=== PATIENT | male | born 1995 | race Two or more races ===

== ENCOUNTER 2018-01-27 14:59 | Emergency (ER) | payer OTHER ==
[~2018-01-27] VITALS: Ht 185.4 cm; Wt 63.5 kg
[2018-01-27 15:05] VITALS: BP 127/78
[2018-01-27] MEDS ORDERED: percogesic PO (15:41)
[2018-01-27] MEDS ORDERED: CEPH-264 PO (15:41)
[2018-01-27] MEDS ORDERED: NAPR-683 PO (15:41)
--- NOTE | 2018-01-27 15:41 | PHYS DOC ---
Past History Past Medical History: No Pertinent History Past Surgical History: No Surgical History Smoking: Cigarettes Alcohol Use: Heavy Drug Use: Benzodiazepine, Marijuana, Opiates Adult General Chief Complaint Chief Complaint: GROIN PAIN [facility] HPI 22-year-old male patient complaining of painful enlarged lymph nodes and bilateral groin for more than 2 weeks and having another lymph node today that his most than his usual. Patient denies fever and chills, urinary symptom, no discharge or concern for STD, lower extremity wound or injury, abdominal pain, nausea and vomiting, diarrhea and constipation. Patient states he lost about 40 pounds for the last 4 months. Patient states he was seen by his care physician 2 days ago and had bunch of blood tests, STD and urine tests and ordering CT of abdomen and pelvis with pending results but his physician told him to come to ER if his pain getting worse. Patient states he is taking illegal Xanax and Percocet and rated his pain 10 over 10. Patient asking to have CT of abdomen and pelvis in ER right now. Review of Systems Review of Systems Constitutional: Denies fever or chills [] Eyes: Denies change in visual acuity, redness, or eye pain [] HENT: Denies nasal congestion or sore throat [] Respiratory: Denies cough or shortness of breath [] Cardiovascular: No additional information not addressed in HPI [] GI: Denies abdominal pain, nausea, vomiting, bloody stools or diarrhea [] : Denies dysuria or hematuria [] Musculoskeletal: Denies back pain or joint pain [] Integument: Denies rash or skin lesions [] Neurologic: Denies headache, focal weakness or sensory changes [] Endocrine: Denies polyuria or polydipsia [] All other systems were reviewed and found to be within normal limits, except as documented in this note. Allergies Allergies Allergies Coded Allergies Type Severity Reaction Last Updated Verified Sulfa (Sulfonamide Antibiotics) Allergy Unknown 01/27/18 Yes Physical Exam Physical Exam Constitutional: Well developed, well nourished, mild distress, non-toxic appearance. [] HENT: Normocephalic, atraumatic, bilateral external ears normal, oropharynx moist, no oral exudates, nose normal. [] Eyes: PERRLA, EOMI, conjunctiva normal, no discharge. [] Neck: Normal range of motion, no tenderness, supple, no stridor. [] Cardiovascular:Heart rate regular rhythm, no murmur [] Lungs & Thorax: Bilateral breath sounds clear to auscultation [] Abdomen: Bowel sounds normal, soft, no tenderness, no masses, no pulsatile masses. 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 [] Back: No tenderness, no CVA tenderness. [] Extremities: No tenderness, no cyanosis, no clubbing, ROM intact, no edema. [] Neurologic: Alert and oriented X 3, normal motor function, normal sensory function, no focal deficits noted. [] Psychologic: Anxious, judgement normal, mood normal. [] Lymph node: no axillary or cervical lymphadenopathy, bilateral inguinal lymphadenopathy EKG EKG [] Radiology/Procedures Radiology/Procedures [] Course & Med Decision Making Course & Med Decision Making Pertinent Labs reviewed. (See chart for details) Palpation of patient in ER showed 22-year-old male patient with complaining of bilateral inguinal lymphadenopathy and history of substance abuse. Patient had less than 1 cm bilateral inguinal lymph nodes without other areas of lymphadenopathy. Patient and seen by his primary care physician and had labs and CT and UA test and alternating CT of abdomen and pelvis but wants stat CT. The patient informed to follow with his primary care physician regarding chronic problem. Patient and his brother was not happy with plan of care. UA showed UTI and plan to give prescription of Keflex for reactive lymphadenopathy and UTI. Dragon Disclaimer Dragon Disclaimer This electronic medical record was generated, in whole or in part, using a voice recognition dictation system. Departure Departure: Impression: Primary Impression: Reactive lymphadenopathy Additional Impressions: UTI (urinary tract infection) Tobacco abuse Tobacco abuse counseling Substance abuse Disposition: HOME, SELF-CARE (At 1537) Condition: STABLE Referrals: PCP,UNKNOWN (PCP) Patient Instructions: Urinary Tract Infection Additional Instructions: Follow-up with your primary care physician for ending result blood and urine tests Drink plenty of liquids Return to ER if not getting better Scripts Naproxen (NAPROSYN) 500 Mg Tablet 500 MG PO BID, #14 Prov: MONTSERRAT VANN MD 01/27/18 [percogesic] No Conflict Check 1 TAB PO PRN for PAIN, #14 Prov: MONTSERRAT VANN MD 01/27/18 Cephalexin (KEFLEX) 500 Mg Capsule 1 CAP PO TID, #30 CAP Prov: MONTSERRAT VANN MD 01/27/18 Problem Qualifiers MONTSERRAT VANN MD January 27, 2018 15:41
[2018-01-28 15:36] LABS: CLARITY,URINE HAZY; COLOR,URINE YELLOW
[2018-01-28 15:37] LABS: BILIRUBIN,URINE NEG (NEG); GLUCOSE,URINE NEG (NEG); NITRITE,URINE NEG (NEG); UROBILINOGEN,URINE 0.2 mg/dL (0.2 mg/dL)
[2018-01-29] MEDS ORDERED: DOXY100C2 PO (09:53)
[2018-01-29] MEDS ORDERED: OXYC-411 PO (09:53)
[2018-01-29] MEDS ORDERED: DOCU-109 PO (09:57)
== END 2018-01-27 15:45 | disposition home or self-care (01) ==
LOC: ER 14:59
DX: R59.1 Generalized enlarged lymph nodes (principal); N39.0 Urinary tract infection, site not specified; F17.210 Nicotine dependence, cigarettes, uncomplicated; F12.10 Cannabis abuse, uncomplicated; F11.10 Opioid abuse, uncomplicated; F19.10 Other psychoactive substance abuse, uncomplicated; F10.20 Alcohol dependence, uncomplicated; Z88.2 Allergy status to sulfonamides
CPT/HCPCS: 81003; 87086; 99283

== ENCOUNTER 2018-01-28 11:48 | Observation (INO) | payer OTHER ==
[~2018-01-28] VITALS: Ht 185.4 cm; Wt 63.1 kg
[~2018-01-28 11:48] MED LIST: CEPH-264 PO; NAPR-683 PO; percogesic PO
[2018-01-28 12:42] VITALS: BP 126/72
[2018-01-28] MEDS ORDERED: IOHEXOL 240 MG/ML 50ML VIAL. ONE (13:36)
[2018-01-28 13:43] LABS: BASO % 1 % (0-3); EOS # 0.1 x10^3/uL (0.0-0.7); EOS % 2 % (0-3); HEMATOCRIT 44.2 % (39.0-53.0); HEMOGLOBIN 15.5 g/dL (13.0-17.5); LYMPH # 1.2 x10^3/uL (1.0-4.8); LYMPH % 22 % (24-48); MEAN CORPUSCULAR HEMOGLOBIN 32 pg (25-35); MEAN CORPUSCULAR HGB CONC 35 g/dL (31-37); MEAN CORPUSCULAR VOLUME 92 fL (79-100); MONO # 0.5 x10^3/uL (0.0-1.1); MONO % 9 % (0-9); NEUT # 3.7 x10^3uL (1.8-7.7); NEUT % 66 % (31-73); PLATELET COUNT 282 x10^3/uL (140-400); RED BLOOD COUNT 4.79 x10^6/uL (4.30-5.70); RED CELL DISTRIBUTION WIDTH 13.6 % (11.5-14.5); WHITE BLOOD COUNT 5.5 x10^3/uL (4.0-11.0)
[2018-01-28 13:52] LABS: ALBUMIN/GLOBULIN RATIO 1.5 (1.0-1.7); CREATININE 0.8 mg/dL (0.7-1.3); TOTAL BILIRUBIN 1.2 mg/dL (0.2-1.0); TOTAL PROTEIN 6.7 g/dL (6.4-8.2)
[2018-01-28] MEDS ORDERED: IOHEXOL 300 MG/ML 75 ML VIAL. IV ONE (14:00)
--- NOTE | 2018-01-28 14:56 | RAD ---
Testicular ultrasound History: Inguinal lymphadenopathy. Comparison: None. Findings: Right testicle measures 3.7 x 4.6 x 2.1 cm. Right testicle demonstrates normal parenchymal echogenicity. The right epididymis is unremarkable. Left testicle measures 3.1 x 4.4 x 2.4 cm. Left testicle demonstrates normal parenchymal echogenicity. The left epididymis is unremarkable. Doppler imaging demonstrates normal flow to both testicles, without evidence of torsion. Small bilateral varicoceles are seen. Imaging was performed in the bilateral inguinal regions. Small benign-appearing lymph nodes are seen with the largest in the left inguinal region measuring 2.2 x 0.3 x 1.2 cm. Impression: 1. No evidence of testicular mass or torsion. 2. Small bilateral varicoceles. 3. Bilateral inguinal lymph nodes have normal size and appearance.
--- NOTE | 2018-01-28 15:02 | RAD ---
CT abdomen and pelvis with IV contrast History: Abdominal pain, inguinal lymphadenopathy. Comparison: None. Technique: After administration of intravenous contrast, 75 mL Omnipaque 300, helical CT of the abdomen and pelvis was performed from the lung bases through the ischial tuberosities. Axial, sagittal, and coronal reconstructions were obtained. One or more of the following individualized dose reduction techniques were utilized for the study: Automated exposure control Adjustment of mA and/or kV according to patient's size Use of iterative reconstruction technique. Findings: Evaluation of enteric structures may be limited by lack of oral contrast. Liver, spleen, pancreas, gallbladder, and bilateral adrenal glands are unremarkable. Bilateral kidneys enhance symmetrically. There are thought to be 2 right and single left renal arteries. There is no evidence of bowel obstruction. No free air or free fluid is identified in the abdomen or pelvis. No abdominal or pelvic lymphadenopathy is seen. Appendix appears within normal limits. Urinary bladder is unremarkable. The prostate appears mildly enlarged and mildly heterogeneous in attenuation for the patient's age; there appears to be more focal low-attenuation involving the right aspect of the prostate. Impression: 1. No evidence of abdominal or pelvic lymphadenopathy. 2. Prostate appears enlarged for patient's age and heterogeneous. Correlate for possibility of prostatitis.
[2018-01-28] MEDS: oxyCODONE/APAP 10/325 1 TAB TABLET PO PRN ×2 (15:52→21:03)
[2018-01-28 16:18] VITALS: BP 114/72
[2018-01-28] MEDS: IV NORMAL SALINE 1,000ML 1,000 ML IV SCH ×2 (17:32→20:07)
[2018-01-28] MEDS: DOXYCYCLINE HYCLATE 100 MG in IV DEXTROSE 5% 100 ML IV SCH (17:36)
[2018-01-28 19:00] VITALS: BP 131/72
[2018-01-28 23:06] VITALS: BP 115/71
[2018-01-29] MEDS: oxyCODONE/APAP 10/325 1 TAB TABLET PO PRN ×3 (01:20→09:16)
[2018-01-29] MEDS: IV NORMAL SALINE 1,000ML 1,000 ML IV SCH ×2 (02:40→09:30)
[2018-01-29] MEDS: DOXYCYCLINE HYCLATE 100 MG in IV DEXTROSE 5% 100 ML IV SCH (05:25)
[2018-01-29 06:06] VITALS: BP 106/72
[2018-01-29 06:45] LABS: BASO % 1 % (0-3); EOS # 0.2 x10^3/uL (0.0-0.7); EOS % 3 % (0-3); HEMATOCRIT 43.7 % (39.0-53.0); HEMOGLOBIN 14.9 g/dL (13.0-17.5); LYMPH # 2.5 x10^3/uL (1.0-4.8); LYMPH % 41 % (24-48); MEAN CORPUSCULAR HEMOGLOBIN 32 pg (25-35); MEAN CORPUSCULAR HGB CONC 34 g/dL (31-37); MEAN CORPUSCULAR VOLUME 93 fL (79-100); MONO # 0.5 x10^3/uL (0.0-1.1); MONO % 8 % (0-9); NEUT # 2.9 x10^3uL (1.8-7.7); NEUT % 47 % (31-73); PLATELET COUNT 261 x10^3/uL (140-400); RED BLOOD COUNT 4.68 x10^6/uL (4.30-5.70); RED CELL DISTRIBUTION WIDTH 13.6 % (11.5-14.5); WHITE BLOOD COUNT 6.1 x10^3/uL (4.0-11.0)
[2018-01-29 06:50] LABS: CALCIUM 8.4 mg/dL (8.5-10.1); CREATININE 0.8 mg/dL (0.7-1.3); POTASSIUM 4.3 mmol/L (3.5-5.1)
[2018-01-29] MEDS ORDERED: OXYC-411 PO (09:53)
[2018-01-29] MEDS ORDERED: DOXY100C2 PO (09:53)
--- NOTE | 2018-01-29 09:56 | DS ---
DATE OF DISCHARGE: 01/29/2018 HOSPITAL COURSE: The patient is 22-year-old male with severe painful lymphadenopathy, unable to sit up because of the pain. The patient was brought in. He was placed on IV doxycycline. The patient's scrotum was also swollen; however, showed some bilateral varices, bi-inguinal lymphadenopathy which were palpable and extremely painful. He did have a history prior to this of probably having some tick bites, but that was a couple of months ago. He has no joint pain, no rashes noted. His CT scan showed prostate enlarged, possible prostatitis. He was placed on oral antibiotics for this as well as pain medicine, requiring IV pain medication as well as oral pain medication. He made excellent progress during the rest of his hospitalization. He was discharged. IMPRESSION: Acute prostatitis, acute lymphadenopathy, severe pain, also weight loss of approximately 30 pounds in the last 6 months. The patient will continue to be monitored. Regular diet, decreased activity see EMRAD. He will follow up in 7-10 or sooner as needed, possibly needs a biopsy. MIKE CORBETT MD DR: MANOLO/ashley JOB#: [id number] / [id number]
[2018-01-29] MEDS ORDERED: DOCU-109 PO (09:57)
== END 2018-01-29 10:25 | disposition home or self-care (01) ==
LOC: 1 SOUTH 12:29 → INTOOBSV 12:29
PROVIDERS: ADMIT Family Medicine; ATTEND Family Medicine
DX: N41.0 Acute prostatitis (principal); R59.0 Localized enlarged lymph nodes; R63.4 Abnormal weight loss; R10.31 Right lower quadrant pain; R06.02 Shortness of breath; N50.819 Testicular pain, unspecified; D48.5 Neoplasm of uncertain behavior of skin; N40.0 Benign prostatic hyperplasia without lower urinary tract symptoms; Z72.0 Tobacco use
CPT/HCPCS: 36415; 74177; 76870; 80048; 80053; 85025; 96361; 96365; 96375; 96376; G0378; G0379; J3010; J3490; Q9967; J7030

== ENCOUNTER 2018-11-13 13:37 | Emergency (ER) | payer OTHER ==
[~2018-11-13] VITALS: Ht 185.4 cm; Wt 74.8 kg
[~2018-11-13 13:37] MED LIST changes: +DOCU-109 PO; +DOXY100C2 PO; +OXYC-411 PO
[2018-11-13] MEDS ORDERED: LIDOCAINE 1% Multi-Dose 20 ML VIAL. IJ ONE (13:45)
[2018-11-13] MEDS ORDERED: IV NORMAL SALINE 1,000ML 1,000 ML IV SCH (13:51)
[2018-11-13 14:07] LABS: BASO % 1 % (0-3); EOS # 0.3 x10^3/uL (0.0-0.7); EOS % 3 % (0-3); HEMATOCRIT 47.6 % (39.0-53.0); HEMOGLOBIN 16.5 g/dL (13.0-17.5); LYMPH # 1.2 x10^3/uL (1.0-4.8); LYMPH % 12 % (24-48); MEAN CORPUSCULAR HEMOGLOBIN 32 pg (25-35); MEAN CORPUSCULAR HGB CONC 35 g/dL (31-37); MEAN CORPUSCULAR VOLUME 92 fL (79-100); MONO # 0.6 x10^3/uL (0.0-1.1); MONO % 6 % (0-9); NEUT # 8.1 x10^3uL (1.8-7.7); NEUT % 79 % (31-73); PLATELET COUNT 326 x10^3/uL (140-400); RED BLOOD COUNT 5.18 x10^6/uL (4.30-5.70); RED CELL DISTRIBUTION WIDTH 13.1 % (11.5-14.5); WHITE BLOOD COUNT 10.3 x10^3/uL (4.0-11.0)
[2018-11-13 14:17] LABS: ALBUMIN 4.5 g/dL (3.4-5.0); ALBUMIN/GLOBULIN RATIO 1.4 (1.0-1.7); CALCIUM 9.5 mg/dL (8.5-10.1); CREATININE 0.8 mg/dL (0.7-1.3); GFR 120.9; POTASSIUM 3.7 mmol/L (3.5-5.1); TOTAL BILIRUBIN 2.1 mg/dL (0.2-1.0); TOTAL PROTEIN 7.8 g/dL (6.4-8.2)
[2018-11-13] MEDS ORDERED: FAMOTIDINE 20 MG/2 ML VIAL IVP ONE (14:20)
--- NOTE | 2018-11-13 14:44 | RAD ---
Indication:Right upper quadrant pain TECHNIQUE: Grayscale, color Doppler and spectral waveform is of the abdomen obtained. COMPARISON:None FINDINGS: Visualized pancreas within normal limits. Pancreatic tail not visualized due to overlying bowel gas. IVC within normal limits. No gallstones, pericholecystic fluid or gallbladder wall thickening. Main portal vein is patent with hepatopedal flow. CBD measures 2 mm in diameter and is within normal limits. Liver measures 18 cm in longest dimension and is mildly enlarged in size with normal echogenicity. Right kidney measures 11.3 cm in length without hydronephrosis. IMPRESSION: 1. No cholelithiasis or sonographic evidence of acute cholecystitis. 2. Very Mild hepatomegaly. Electronically signed by: Sukhdeep Montgomery DO (11/13/2018 2:41 PM) [id number]
[2018-11-13 15:20] VITALS: BP 122/80
[2018-11-13] MEDS ORDERED: RANI150T21 PO (15:22)
--- NOTE | 2018-11-13 15:23 | PHYS DOC ---
Past History Past Medical History: Other Past Surgical History: No Surgical History Smoking: Cigarettes Alcohol Use: Occasionally Additional Alcohol Information: 1 beer daily Drug Use: Benzodiazepine, Marijuana, Opiates Social History Narrative: oxycodone- buys off the street Adult General Chief Complaint Chief Complaint: ABDOMINAL PAIN HPI HPI Patient is a 23 year old male who presents with complaining of abdominal pain. Patient states he had oxycodone at use for a while and did not taking oxycodone for the last few days. Patient complaining of right upper quadrant pain as a constant and sharp pain without radiation for the last 2 days with decrease of appetite and nausea. Patient denies vomiting and diarrhea. Patient states she has chronic constipation. [facility] for concern of Tylenol overdose. Patient states he took 4 pills of oxycodone with 325 mg of Tylenol at the same time several days ago but didn't take any oxycodone recently. Review of Systems Review of Systems Constitutional: Denies fever or chills [] Eyes: Denies change in visual acuity, redness, or eye pain [] HENT: Denies nasal congestion or sore throat [] Respiratory: Denies cough or shortness of breath [] Cardiovascular: No additional information not addressed in HPI [] GI: Reports abdominal pain, nausea, constipation, denies vomiting, bloody stools or diarrhea [] : Denies dysuria or hematuria [] Musculoskeletal: Denies back pain or joint pain [] Integument: Denies rash or skin lesions [] Neurologic: Denies headache, focal weakness or sensory changes [] Endocrine: Denies polyuria or polydipsia [] All other systems were reviewed and found to be within normal limits, except as documented in this note. Current Medications Current Medications Current Medications Medications (Trade) Dose Ordered Sig/Xena Start Time Stop Time Status Last Admin Dose Admin Famotidine (Pepcid Vial) 20 mg 1X ONCE 11/13/18 14:20 11/13/18 14:21 DC 11/13/18 14:00 20 MG Lidocaine HCl 20 ml 1X ONCE 11/13/18 13:45 11/13/18 13:50 DC Sodium Chloride 1,000 ml @ 1,000 mls/hr Q1H 11/13/18 13:51 11/13/18 14:50 DC 11/13/18 13:59 1,000 MLS/HR Allergies Allergies Allergies Coded Allergies Type Severity Reaction Last Updated Verified Sulfa (Sulfonamide Antibiotics) Allergy Unknown 11/13/18 Yes Physical Exam Physical Exam Constitutional: Well developed, well nourished, mild distress, non-toxic appearance. [] HENT: Normocephalic, atraumatic, oropharynx moist, no oral exudates, nose normal. [] Eyes: PERRLA, EOMI, conjunctiva normal, no discharge. [] Neck: Normal range of motion, no tenderness, supple, no stridor. [] Cardiovascular:Heart rate regular rhythm, no murmur [] Lungs & Thorax: Bilateral breath sounds clear to auscultation [] Abdomen: Bowel sounds normal, soft, right upper quadrant guarding, no tenderness , no masses, no pulsatile masses. [] Skin: Warm, dry, no erythema, no rash. [] Back: No tenderness, no CVA tenderness. [] Extremities: No tenderness, no cyanosis, no clubbing, ROM intact, no edema. [] Neurologic: Alert and oriented X 3, normal motor function, normal sensory function, no focal deficits noted. [] Psychologic: Affect anxious, judgement normal, mood normal. [] Current Patient Data Vital Signs Vital Signs Date Time Temp Pulse Resp B/P (MAP) Pulse Ox O2 Delivery O2 Flow Rate FiO2 11/13/18 13:46 97.9 59 20 99 Room Air Lab Results Laboratory Tests Test 11/13/18 13:50 White Blood Count 10.3 x10^3/uL (4.0-11.0) Red Blood Count 5.18 x10^6/uL (4.30-5.70) Hemoglobin 16.5 g/dL (13.0-17.5) Hematocrit 47.6 % (39.0-53.0) Mean Corpuscular Volume 92 fL (79-100) Mean Corpuscular Hemoglobin 32 pg (25-35) Mean Corpuscular Hemoglobin Concent 35 g/dL (31-37) Red Cell Distribution Width 13.1 % (11.5-14.5) Platelet Count 326 x10^3/uL (140-400) Neutrophils (%) (Auto) 79 % (31-73) H Lymphocytes (%) (Auto) 12 % (24-48) L Monocytes (%) (Auto) 6 % (0-9) Eosinophils (%) (Auto) 3 % (0-3) Basophils (%) (Auto) 1 % (0-3) Neutrophils # (Auto) 8.1 x10^3uL (1.8-7.7) H Lymphocytes # (Auto) 1.2 x10^3/uL (1.0-4.8) Monocytes # (Auto) 0.6 x10^3/uL (0.0-1.1) Eosinophils # (Auto) 0.3 x10^3/uL (0.0-0.7) Basophils # (Auto) 0.0 x10^3/uL (0.0-0.2) Sodium Level 140 mmol/L (136-145) Potassium Level 3.7 mmol/L (3.5-5.1) Chloride Level 100 mmol/L (98-107) Carbon Dioxide Level 29 mmol/L (21-32) Anion Gap 11 (6-14) Blood Urea Nitrogen 10 mg/dL (8-26) Creatinine 0.8 mg/dL (0.7-1.3) Estimated GFR (Cockcroft-Gault) 120.9 BUN/Creatinine Ratio 13 (6-20) Glucose Level 95 mg/dL (70-99) Calcium Level 9.5 mg/dL (8.5-10.1) Total Bilirubin 2.1 mg/dL (0.2-1.0) H Aspartate Amino Transferase (AST) 16 U/L (15-37) Alanine Aminotransferase (ALT) 16 U/L (16-63) Alkaline Phosphatase 62 U/L (46-116) Total Protein 7.8 g/dL (6.4-8.2) Albumin 4.5 g/dL (3.4-5.0) Albumin/Globulin Ratio 1.4 (1.0-1.7) Lipase 40 U/L (73-393) L EKG EKG [] Radiology/Procedures Radiology/Procedures [address] [address] IMAGING REPORT Signed PATIENT: BHAVESH RIZZO ACCOUNT: [id number] : 1995 LOCATION: ER AGE: 23 SEX: M EXAM STATUS: REG ER ORD. PHYSICIAN: MONTSERRAT VANN MD REASON: right upper quadrant pain PROCEDURE: ABDOMEN LTD Indication:Right upper quadrant pain TECHNIQUE: Grayscale, color Doppler and spectral waveform is of the abdomen obtained. COMPARISON:None FINDINGS: Visualized pancreas within normal limits. Pancreatic tail not visualized due to overlying bowel gas. IVC within normal limits. No gallstones, pericholecystic fluid or gallbladder wall thickening. Main portal vein is patent with hepatopedal flow. CBD measures 2 mm in diameter and is within normal limits. Liver measures 18 cm in longest dimension and is mildly enlarged in size with normal echogenicity. Right kidney measures 11.3 cm in length without hydronephrosis. IMPRESSION: 1. No cholelithiasis or sonographic evidence of acute cholecystitis. 2. Very Mild hepatomegaly. Electronically signed by: Sukhdeep Montgomery DO (11/13/2018 2:41 PM) [id number] DICTATED AND SIGNED BY: SUKHDEEP MONTGOMERY DO DATE: 11/13/18 1440 CC: MIKE CORBETT MD; MONTSERRAT VANN MD ~ Course & Med Decision Making Course & Med Decision Making Pertinent Labs and Imaging studies reviewed. (See chart for details) discharge: I've spoken with the patient and/or caregivers. I've explained the patient's condition, diagnosis and treatment plan based on information available to me at this time. I've answered the patient's and/or caregivers questions and addressed any concerns. The patient and/or caregivers have a good understanding the patient's diagnosis, condition and treatment plan as can be expected at this point. Vital signs have been stabilized. The patient's condition is stable for discharge from the emergency department. The patient will pursue further outpatient evaluation with her primary care provider or other designated consulting physician as outlined in the discharge instructions. Patient and/or caregivers are agreeable to this plan of care and follow-up instructions have been explained in detail. The patient and/or caregivers have received these instructions in written format and expressed understanding of these discharge instructions. The patient and her caregivers are aware that if any significant change in condition or worsening of symptoms should prompt him to immediately return to this of the closest emergency department. If an emergent department is not readily available I would encourage him to call 911. Librado Disclaimer Dragon Disclaimer This electronic medical record was generated, in whole or in part, using a voice recognition dictation system. 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
[2018-11-13 15:45] LABS: BILIRUBIN,URINE NEG (NEG); CLARITY,URINE CLEAR; COLOR,URINE AMBER; GLUCOSE,URINE NEG (NEG); NITRITE,URINE NEG (NEG); UROBILINOGEN,URINE 1 mg/dL (0.2 mg/dL)
[2018-11-13 15:46] LABS: BACTERIA,URINE FEW /HPF (0-FEW); RBC,URINE 0 /HPF (0-2)
== END 2018-11-13 15:32 | disposition home or self-care (01) ==
LOC: ER 13:37
DX: R10.11 Right upper quadrant pain (principal); F17.210 Nicotine dependence, cigarettes, uncomplicated; E80.6 Other disorders of bilirubin metabolism; F12.10 Cannabis abuse, uncomplicated; F11.10 Opioid abuse, uncomplicated; F19.10 Other psychoactive substance abuse, uncomplicated; R16.0 Hepatomegaly, not elsewhere classified; Z71.6 Tobacco abuse counseling; Z88.2 Allergy status to sulfonamides
CPT/HCPCS: 36415; 76705; 80053; 81001; 83690; 85025; 96374; 99284; J3490; J7030